=== PATIENT | female | born 1995 | race Caucasian/White ===

== ENCOUNTER 2018-08-20 19:16 | Emergency (ER) | payer OTHER ==
[~2018-08-20] VITALS: Ht 162.6 cm; Wt 72.7 kg
[2018-08-20] MEDS ORDERED: PredniSONE 20 MG TABLET PO ONE (21:30)
[2018-08-20] MEDS ORDERED: DiphenhydrAMINE HCL 25 MG CAPSULE PO ONE (21:30)
[2018-08-20 21:50] VITALS: BP 113/70
== END 2018-08-20 21:59 | disposition home or self-care (01) ==
LOC: EMS 19:17
DX: L50.0 Allergic urticaria (principal); F17.210 Nicotine dependence, cigarettes, uncomplicated; Z91.010 Allergy to peanuts
CPT/HCPCS: 99283; 99406; J7512